=== PATIENT | female | born 1960 | race Caucasian/White ===

== ENCOUNTER 2023-01-30 09:41 | Inpatient (IN) | payer OTHER ==
[~2023-01-30] VITALS: Ht 167.6 cm; Wt 65.8 kg
[2023-01-30] MEDS ORDERED: KETOROLAC 30MG/ML VIAL IM ONE (11:00)
[2023-01-30 12:35] LABS: BASOPHILS % 0.5 % (0.0-2.0); EOSINOPHILS % 4.3 % (0.0-5.0); HEMATOCRIT. 40.2 % (36.0-48.0); HEMOGLOBIN. 13.8 g/dL (12.0-16.0); MEAN CORPUSCULAR HGB CONC 34.3 g/dL (31.0-37.0); MEAN CORPUSCULAR VOLUME 93.4 fL (81.0-99.0); MEAN PLATELET VOLUME 8.4 fl (7.4-10.4); MONOCYTES % 9.4 % (2.0-8.0); NEUTROPHILS % 60.8 % (40.0-76.0); PLATELET 170 x1000/uL (130-400); RED CELL DISTRIBUTION WIDTH 13.2 % (11.6-14.6); WHITE BLOOD COUNT 5.2 x1000/uL (4.5-11.0)
[2023-01-30] MEDS ORDERED: CLONIDINE 0.1MG TABLET PO PRN (13:30)
[2023-01-30] MEDS ORDERED: MAGNESIUM/ALUMINUM HYDROXIDE/SIMETHICONE 30ML UDC PO PRN (13:30)
[2023-01-30] MEDS ORDERED: DIPHENHYDRAMINE 50MG/ML VIAL IV PRN (13:30)
[2023-01-30] MEDS ORDERED: DOCUSATE SODIUM 100MG CAPSULE PO PRN (13:30)
[2023-01-30] MEDS ORDERED: ACETAMINOPHEN 325MG TABLET PO PRN ×2 (13:30)
[2023-01-30] MEDS ORDERED: SODIUM CHLORIDE 0.9% 1,000 ML IV ONE (13:30)
[2023-01-30] MEDS ORDERED: ONDANSETRON HCL 4MG/2ML INJ IV PRN (13:30)
[2023-01-30 13:58] LABS: INDEX HEMOLYSI 1 (1-3); INDEX ICTERIC 1 (1-4); INDEX LIPEMIC 1 (1-3)
[2023-01-30 13:59] LABS: CHLORIDE 110 mEq/L (98-107); POTASSIUM 3.8 mEq/L (3.5-5.1); SODIUM 142 mEq/L (136-145)
[2023-01-30 14:45] LABS: ALANINE AMINOTRANSFERASE 21 IU/L (13-61); ALBUMIN 3.7 g/dL (3.4-5.0); ASPARTATE AMINOTRANSFERASE 20 IU/L (15-37); BILIRUBIN TOTAL 0.4 mg/dL (0.1-1.0); CARBON DIOXIDE 25 mEq/L (21-32); CREATININE 0.7 mg/dL (0.6-1.3); GLUCOSE 100 mg/dL (70-105); PROTEIN TOTAL 7.1 g/dL (6.0-8.3); UREA NITROGEN BLOOD 17 mg/dL (7-21)
[2023-01-30 16:20] LABS: INDEX HEMOLYSI 1 (1-3); INDEX ICTERIC 1 (1-4); INDEX LIPEMIC 1 (1-3)
[2023-01-30 16:35] LABS: CHOLESTEROL 133 mg/dL (<200); ETHANOL BLOOD < 10 mg/dL (-10); HDL CHOLESTEROL 40 mg/dL (40-59); LDL CHOLESTEROL 80 mg/dL (5-100); PHOSPHORUS 3.1 mg/dL (2.5-4.9); T4 FREE 0.94 ng/dL (0.76-1.46); TRIGLYCERIDE 93 mg/dL (0-150)
[2023-01-30 17:59] LABS: CLARITY URINE TURBID (CLEAR); COLOR URINE DARK YELLOW (YELLOW); GLUCOSE URINE NEGATIVE (NEGATIVE); KETONES URINE TRACE (NEGATIVE); LEUKOCYTE ESTERASE URINE 2+ (NEGATIVE); NITRITE URINE NEGATIVE (NEGATIVE); OCCULT BLOOD URINE 1+ (NEGATIVE); PROTEIN URINE 1+ (NEGATIVE); SPECIFIC GRAVITY URINE 1.029 (1.005-1.030)
[2023-01-30 18:27] LABS: *AMPHETAMINES SCREEN URINE NEGATIVE (NEGATIVE); *BARBITURATES SCREEN URINE NEGATIVE (NEGATIVE); *BENZODIAZEPINES SCREEN URINE NEGATIVE (NEGATIVE); *COCAINE SCREEN URINE NEGATIVE (NEGATIVE); CANNABINOID URINE SCREEN NEGATIVE (NEGATIVE); ECSTASY MDMA SCREEN URINE NEGATIVE (NEGATIVE); METHADONE URINE SCREEN NEGATIVE (NEGATIVE); PHENCYCLIDINE URINE SCREEN NEGATIVE (NEGATIVE)
[2023-01-30 18:31] LABS: BACTERIA URINE 4+; SQUAMOUS EPITHELIAL CELL URINE 2+ /lpf (RARE/1+)
[2023-01-30 18:32] LABS: AMORPHOUS SEDIMENT URINE 2+ /lpf
[2023-01-30 18:45] LABS: OPIATES URINE SCREEN NEGATIVE (NEGATIVE)
[2023-01-30 20:00] VITALS: BP 133/54; PULSE 61; RESP 18; TEMP 97.5
[2023-01-30 21:48] LABS: TROPONIN I HIGH SENSITIVITY 11 ng/L (<54)
[2023-01-30 22:12] VITALS: BP 133/54; PULSE 89; RESP 18; TEMP 98.6
[2023-01-31] VITALS: BP 95/69; PULSE 60; RESP 18; TEMP 96.6
[2023-01-31 04:00] VITALS: BP 129/63; PULSE 68; RESP 18; TEMP 97.5
[2023-01-31] MEDS: PANTOPRAZOLE 40MG DR TABLET PO SCH (06:59)
[2023-01-31 08:00] VITALS: BP_SYST 120; BP_SYST 136; BP_DIAS 61; BP_DIAS 65; PULSE 85; RESP 16; TEMP 98
[2023-01-31 11:09] LABS: TROPONIN I HIGH SENSITIVITY 11 ng/L (<54)
[2023-01-31 12:00] VITALS: BP_SYST 133; BP_SYST 149; BP_DIAS 67; BP_DIAS 78; PULSE 74; RESP 18; TEMP 98.1
[2023-01-31 16:00] VITALS: BP_SYST 145; BP_SYST 153; BP_DIAS 60; BP_DIAS 76; PULSE 89; RESP 18; TEMP 98.5
[2023-01-31] MEDS: ENOXAPARIN 40MG/0.4ML SYR SUBCUT SCH ×2 (18:02→18:04)
[2023-01-31 20:00] VITALS: BP 158/89; PULSE 73; RESP 20; TEMP 96.6
[2023-01-31] MEDS: KETOROLAC 15MG/ML VIAL IV PRN (23:02)
[2023-02-01] VITALS: BP 142/72; PULSE 70; RESP 20; TEMP 96.7
[2023-02-01 04:00] VITALS: BP 121/62; PULSE 60; RESP 20; TEMP 97.1
[2023-02-01] MEDS: PANTOPRAZOLE 40MG DR TABLET PO SCH (08:32)
[2023-02-01 14:47] VITALS: RESP 20
[2023-02-01] MEDS: KETOROLAC 15MG/ML VIAL IV PRN (14:47)
[2023-02-01 15:19] VITALS: BP 138/72; PULSE 76; TEMP 97.5; O2SAT 98
[2023-02-02] MEDS ORDERED: FAMOTIDINE 20MG TABLET PO SCH (09:00)
== END 2023-02-01 17:20 | disposition home or self-care (01) | DRG 536 ==
LOC: ER 09:41 → EDBEDREQTM 12:52 → EDBEDREQ 12:52 → 6EST 18:46
PROVIDERS: ADMIT Hospitalist; ATTEND Hospitalist
DX: S32.591A Other specified fracture of right pubis, initial encounter for closed fracture (principal); I16.0 Hypertensive urgency; F17.210 Nicotine dependence, cigarettes, uncomplicated; V29.99XA Rider (driver) (passenger) of other motorcycle injured in unspecified traffic accident, initial encounter; Y93.89 Activity, other specified; Y92.410 Unspecified street and highway as the place of occurrence of the external cause; Y99.8 Other external cause status
CPT/HCPCS: 36415; 73502; 73552; 80053; 80061; 80305; 80320; 81003; 83036; 83735; 84100; 84439; 84443; 84484; 85025; 97116; 97162; 99285; J1650; J1885; G0480